=== PATIENT | female | born 1965 | race Asian ===

== ENCOUNTER 2019-10-04 19:16 | Inpatient (IN) | payer MEDICAID ==
[~2019-10-04] VITALS: Ht 167.6 cm; Wt 93.9 kg
[~2019-10-04 19:16] MED LIST: LEVO500T2 MT; METF500T; TRAM50TA94 MT; [UNRECOGNIZED DRUG - CODE]
[2019-10-04] MEDS ORDERED: MORPHINE SULFATE 4 MG/ML CPJ (NOT FOR IM USE) IV STA (19:41)
[2019-10-04] MEDS ORDERED: ONDANSETRON HCL 4MG/2ML INJ IV STA (19:41)
[2019-10-04] MEDS ORDERED: VANCOMYCIN 1 G PREMIX 200 ML IV ONE (19:45)
[2019-10-04] MEDS ORDERED: PIPERACILLIN/TAZ 3.375G PREMIX 50 ML IV ONE (19:45)
[2019-10-04] MEDS ORDERED: SODIUM CHLORIDE 0.9% 1000ML BAG (SEPSIS BOLUS) IV ONE (19:45)
[2019-10-04] MEDS ORDERED: HALOPERIDOL LACTATE 5MG/ML VIAL IM ONE (20:00)
[2019-10-04 20:07] LABS: HEMATOCRIT. 30.9 % (36.0-48.0); MEAN CORPUSCULAR HEMOGLOBIN 26.3 pg (28.0-32.0); MEAN CORPUSCULAR VOLUME 81.5 fL (81.0-99.0); MEAN PLATELET VOLUME 6.8 fl (7.4-10.4); PLATELET 708 x1000/uL (130-400); RED BLOOD CELL COUNT 3.79 mill/uL (4.2-5.4); RED CELL DISTRIBUTION WIDTH 17.8 % (11.6-14.6)
[2019-10-04 20:12] LABS: CHLORIDE 93 mEq/L (98-107)
[2019-10-04 20:14] LABS: INR 1.1; PROTHROMBIN TIME 11.2 sec (9.6-11.0)
[2019-10-04 20:30] LABS: PLATELET ESTIMATE INCREASED
[2019-10-05] MEDS ORDERED: FUROSEMIDE 40MG/4ML VIAL IVP ONE (00:15)
[2019-10-05] MEDS ORDERED: ONDANSETRON HCL 4MG/2ML INJ IV PRN (00:15)
[2019-10-05] MEDS ORDERED: ACETAMINOPHEN 325MG TABLET PO PRN (00:15)
[2019-10-05] MEDS: MORPHINE SULFATE 2 MG/ML CPJ (NOT FOR IM USE) IV PRN ×3 (04:41→18:57)
[2019-10-05 05:00] VITALS: BP_SYST 112; BP_SYST 127; BP_DIAS 71; BP_DIAS 85
[2019-10-05] MEDS ORDERED: METF-517 PO (05:38)
[2019-10-05 08:17] VITALS: BP 107/71
[2019-10-05] MEDS: HEPARIN 5000 UNITS/ML VIAL SUBCUT SCH ×2 (09:09→20:40)
[2019-10-05 10:43] LABS: INR 1.1; PARTIAL THROMBOPLASTIN TIME 34.7 sec (23.4-31.0); PROTHROMBIN TIME 11.5 sec (9.6-11.0)
[2019-10-05 11:54] VITALS: BP 123/66
[2019-10-05] MEDS ORDERED: MAGNESIUM HYDROXIDE 400MG/5ML 30ML UDC PO PRN (14:15)
[2019-10-05] MEDS ORDERED: SENNOSIDES/DOCUSATE SOD 8.6/50MG TABLET PO PRN (14:15)
[2019-10-05] MEDS ORDERED: BISACODYL 10MG SUPP PR PRN (14:15)
[2019-10-05] MEDS: DOCUSATE SODIUM 250MG CAPSULE PO SCH (14:38)
[2019-10-05] MEDS ORDERED: MAGNESIUM CITRATE 300ML SOLUTION PO SCH (15:00)
[2019-10-05] MEDS ORDERED: NA PHOS,M-B/NA PHOS,DI-BA ENEMA 118ML PR SCH (15:00)
[2019-10-05 15:25] VITALS: BP 120/72
[2019-10-05 16:57] LABS: CLARITY URINE CLOUDY (CLEAR); COLOR URINE DARK YELLOW (YELLOW); KETONES URINE NEGATIVE (NEGATIVE); LEUKOCYTE ESTERASE URINE NEGATIVE (NEGATIVE); NITRITE URINE NEGATIVE (NEGATIVE); OCCULT BLOOD URINE 3+ (NEGATIVE); PH URINE 5.5 (4.5-8.0); PROTEIN URINE 1+ (NEGATIVE); SPECIFIC GRAVITY URINE 1.029 (1.005-1.030)
[2019-10-05 20:00] VITALS: BP 122/80
[2019-10-05] MEDS: HYDROCODONE/ACETAMINOPHEN 5/325MG TABLET PO PRN (22:32)
[2019-10-06] VITALS (7 sets, daily range): BP systolic 107–127; BP diastolic 59–90
[2019-10-06] MEDS: BLOOD SUGAR DIAGNOSTIC STRIP TEST SCH ×4 (06:30→17:43)
[2019-10-06 06:45] LABS: HEMATOCRIT. 28.2 % (36.0-48.0); HEMOGLOBIN. 9.4 g/dL (12.0-16.0); MEAN CORPUSCULAR HEMOGLOBIN 26.9 pg (28.0-32.0); MEAN CORPUSCULAR VOLUME 80.5 fL (81.0-99.0); MEAN PLATELET VOLUME 6.9 fl (7.4-10.4); PLATELET 597 x1000/uL (130-400); RED CELL DISTRIBUTION WIDTH 18.4 % (11.6-14.6)
[2019-10-06] MEDS ORDERED: DEXTROSE 50% WATER 50ML SYRINGE IV PRN (06:45)
[2019-10-06 06:55] LABS: CHLORIDE 99 mEq/L (98-107)
[2019-10-06] MEDS: INSULIN LISPRO 100 UNITS/ML SUBCUT SCH ×3 (07:50→15:14)
[2019-10-06] MEDS: HEPARIN 5000 UNITS/ML VIAL SUBCUT SCH (07:52)
[2019-10-06] MEDS: MORPHINE SULFATE 2 MG/ML CPJ (NOT FOR IM USE) IV PRN ×2 (08:11→15:41)
[2019-10-06] MEDS ORDERED: LIDOCAINE HCL 1% 20ML VIAL (Pyxis) INJ ONE (08:39)
[2019-10-06] MEDS ORDERED: SIMETHICONE/SOD BICARB/CIT AC 1 EACH GRAN.EF.PK ONE (08:40)
[2019-10-06] MEDS ORDERED: SODIUM BICARBONATE 4% (2.4MEQ) 5ML VIAL IV ONE (08:40)
[2019-10-06 09:41] LABS: PLATELET ESTIMATE INCREASED
[2019-10-06] MEDS: HYDROCODONE/ACETAMINOPHEN 5/325MG TABLET PO PRN (10:34)
[2019-10-06] MEDS: DOCUSATE SODIUM 250MG CAPSULE PO SCH (15:14)
[2019-10-06] MEDS ORDERED: SENN-3 PO (16:00)
[2019-10-06] MEDS ORDERED: DOCU250C14 PO (16:00)
[2019-10-06] MEDS ORDERED: TRAM50TA94 MT (16:00)
[2019-10-11 13:06] LABS: CANCER ANTIGEN 125 494.9 U/mL (0.0-38.1)
== END 2019-10-06 18:10 | disposition home or self-care (01) | DRG 240 ==
LOC: ER 19:16 → EDBEDREQ 23:39 → EDBEDREQSVC 23:39 → 6WST 10-05 00:28 → EDBEDREQ 10-05 00:39 → ENRESERV 10-05 02:44
PROVIDERS: ADMIT Internal Medicine; ATTEND Internal Medicine
PROC: 0W9G3ZZ Drainage of Peritoneal Cavity, Percutaneous Approach (ICD-10-PCS; principal; 2019-10-06)
DX: C78.6 Secondary malignant neoplasm of retroperitoneum and peritoneum (principal); J96.00 Acute respiratory failure, unspecified whether with hypoxia or hypercapnia; J91.8 Pleural effusion in other conditions classified elsewhere; E44.0 Moderate protein-calorie malnutrition; E87.2 Acidosis; R18.8 Other ascites; E66.01 Morbid (severe) obesity due to excess calories; E11.9 Type 2 diabetes mellitus without complications; K59.00 Constipation, unspecified; Z79.84 Long term (current) use of oral hypoglycemic drugs; Z68.33 Body mass index [BMI] 33.0-33.9, adult; Z79.2 Long term (current) use of antibiotics; Z79.899 Other long term (current) drug therapy
CPT/HCPCS: 36415; 49083; 71045; 74176; 81003; 82105; 82378; 82962; 83605; 84145; 84484; 84702; 86301; 86304; 88108; 88312; 93005; 96361; 96365; 96368; 96372; 96375; 99291; J1630; J1644; J1815; J1940; J2270; J2405; J2543; J3370; J3490; J7030; J7517

== ENCOUNTER 2019-10-09 19:00 | Inpatient (IN) | payer MEDICAID, OTHER ==
[~2019-10-09] VITALS: Ht 167.6 cm; Wt 99.8 kg
[~2019-10-09 19:00] MED LIST changes: +DOCU250C14 PO; -LEVO500T2 MT; +METF-517 PO; -METF500T; +SENN-3 PO; -[UNRECOGNIZED DRUG - CODE]
[2019-10-09] MEDS ORDERED: ONDANSETRON HCL 4MG/2ML INJ IV STA (19:40)
[2019-10-09] MEDS ORDERED: MORPHINE SULFATE 4 MG/ML CPJ (NOT FOR IM USE) IV STA (19:40)
[2019-10-09 20:41] LABS: HEMOGLOBIN. 8.9 g/dL (12.0-16.0); MEAN CORPUSCULAR HEMOGLOBIN 25.5 pg (28.0-32.0); MEAN CORPUSCULAR VOLUME 80.2 fL (81.0-99.0); MEAN PLATELET VOLUME 6.8 fl (7.4-10.4); PLATELET 528 x1000/uL (130-400); RED CELL DISTRIBUTION WIDTH 18.7 % (11.6-14.6)
[2019-10-09 20:43] LABS: CHLORIDE 94 mEq/L (98-107)
[2019-10-09 20:45] LABS: INR 1.1; PROTHROMBIN TIME 11.4 sec (9.6-11.0)
[2019-10-09 20:56] LABS: PLATELET ESTIMATE INCREASED
[2019-10-09] MEDS ORDERED: GUAIFENESIN 200MG/10ML SUGAR FREE UDC PO PRN (22:45)
[2019-10-09] MEDS ORDERED: TRAMADOL 50MG TABLET PO PRN (22:45)
[2019-10-09] MEDS ORDERED: NA PHOS,M-B/NA PHOS,DI-BA ENEMA 118ML PR PRN (22:45)
[2019-10-09] MEDS ORDERED: DEXTROSE 50% WATER 50ML SYRINGE IV PRN (22:45)
[2019-10-09] MEDS ORDERED: DOCUSATE SODIUM 100MG CAPSULE PO PRN (22:45)
[2019-10-09] MEDS ORDERED: ENOXAPARIN 40MG/0.4ML SYR SUBCUT SCH (22:45)
[2019-10-09] MEDS ORDERED: CLONIDINE 0.1MG TABLET PO PRN (22:45)
[2019-10-09] MEDS ORDERED: LORAZEPAM 0.5MG TABLET PO PRN (22:45)
[2019-10-09] MEDS ORDERED: IPRATROPIUM/ALBUTEROL 0.5-3(2.5)MG/3ML NEB NEB PRN (22:45)
[2019-10-09] MEDS ORDERED: ACETAMINOPHEN 325MG TABLET PO PRN (22:45)
[2019-10-09] MEDS ORDERED: MORPHINE SULFATE 2 MG/ML CPJ (NOT FOR IM USE) IV PRN (22:45)
[2019-10-09] MEDS ORDERED: ONDANSETRON HCL 4MG/2ML INJ IV PRN (22:45)
[2019-10-09] MEDS ORDERED: MAGNESIUM/ALUMINUM HYDROXIDE/SIMETHICONE 30ML UDC PO PRN (22:45)
[2019-10-09] MEDS ORDERED: NITROGLYCERIN 0.4MG TABLET SL SL PRN (22:45)
[2019-10-09 23:15] LABS: FOLIC ACID (FOLATE) SERUM 13.3 ng/mL (>5.38)
[2019-10-09] MEDS ORDERED: INSULIN LISPRO 100 UNITS/ML SUBCUT NR (23:15)
[2019-10-09 23:30] VITALS: BP 125/77
[2019-10-09] MEDS ORDERED: ZOLPIDEM TARTRATE 5MG TABLET PO PRN (23:45)
[2019-10-10] MEDS: ENOXAPARIN 30MG/0.3ML SYR SUBCUT SCH ×2 (01:03→08:42)
[2019-10-10] MEDS ORDERED: FUROSEMIDE 40MG/4ML VIAL IVP SCH (07:15)
[2019-10-10] MEDS ORDERED: BLOOD SUGAR DIAGNOSTIC STRIP TEST SCH (07:20)
[2019-10-10] MEDS ORDERED: INSULIN LISPRO 100 UNITS/ML SUBCUT SCH (07:50)
[2019-10-10 08:00] VITALS: BP 117/70
[2019-10-10] MEDS ORDERED: SPIRONOLACTONE 25MG TABLET PO SCH (09:00)
[2019-10-10] MEDS ORDERED: FAMOTIDINE 20MG TABLET PO SCH (09:00)
[2019-10-10 09:09] VITALS: BP 117/70
== END 2019-10-10 10:30 | disposition home or self-care (01) | DRG 240 ==
LOC: ER 19:00 → 6EST 21:15 → EDBEDREQSVC 22:11 → EDBEDREQTM 22:11 → EDBEDREQ 22:11 → ENRESERV 22:22 → 6EST 10-10 01:43
PROVIDERS: ADMIT Internal Medicine; ATTEND Student in an Organized Health Care Education/Training Program
DX: C78.6 Secondary malignant neoplasm of retroperitoneum and peritoneum (principal); E43 Unspecified severe protein-calorie malnutrition; E87.1 Hypo-osmolality and hyponatremia; E11.9 Type 2 diabetes mellitus without complications; D64.9 Anemia, unspecified; F41.9 Anxiety disorder, unspecified; G47.00 Insomnia, unspecified; K59.00 Constipation, unspecified; Z68.35 Body mass index [BMI] 35.0-35.9, adult; Z79.899 Other long term (current) drug therapy
CPT/HCPCS: 36415; 80053; 80061; 82607; 82746; 82962; 83036; 83540; 83550; 84484; 85025; 93005; 96372; 96374; 96375; 99285; J1650; J1815; J1940; J2270; J2405